=== PATIENT | male | born 1960 | race Hispanic/Latino ===

== ENCOUNTER 2017-09-07 16:42 | Emergency (ER) | payer OTHER ==
[2017-09-07 16:51] VITALS: BP 134/84; PULSE 84; RESP 16; TEMP 98.3; O2SAT 98
[2017-09-07 17:42] LABS: BASO % 0.5 % (0.0-2.0); EOS # 0.1 K/uL (0.0-0.7); EOS % 1.9 % (0.0-4.0); HEMATOCRIT 42.6 % (35.0-51.0); LYMPH # 1.9 K/uL (1.0-4.3); LYMPH % 32.5 % (20.0-40.0); MEAN CELL VOLUME 87.6 fl (80.0-94.0); MEAN CORPUSCULAR HEMOGLOBIN 29.7 pg (27.0-31.0); MEAN CORPUSCULAR HGB CONC 33.9 g/dL (33.0-37.0); MEAN PLATELET VOLUME 10.1 fl (7.2-11.7); MONO # 0.7 K/uL (0.0-0.8); MONO % 11.9 % (0.0-10.0); NEUT # 3.1 K/uL (1.8-7.0); NEUT % 53.2 % (50.0-75.0); NRBC % 0.2 % (0.0-0.0); RED CELL DISTRIBUTION WIDTH 12.6 % (11.5-14.5); WHITE BLOOD COUNT 5.8 K/uL (4.8-10.8)
--- NOTE | 2017-09-07 17:44 | ED PDOC ---
HPI: Abdomen Time Seen by Provider: 09/07/17 16:48 Chief Complaint (Nursing): Abdominal Pain Chief Complaint (Provider): Abdominal Pain History Per: Patient History/Exam Limitations: no limitations Onset/Duration Of Symptoms: Days (x3 days) Current Symptoms Are (Timing): Still Present Additional Complaint(s): 57 y/o male presents to the emergency department with a complaint of a constant left lower region abdominal pain x3 days. Denies previous surgeries, nausea, vomiting, diarrhea, or blood stools. PMD: Dr. Ludwin Hodgson MD Past Medical History Reviewed: Historical Data, Nursing Documentation, Vital Signs Vital Signs: Last Vital Signs Temp 98.3 F 09/07/17 16:49 Pulse 84 09/07/17 16:49 Resp 16 09/07/17 16:49 BP 134/84 09/07/17 16:49 Pulse Ox 98 09/07/17 19:20 - Medical History PMH: HTN - Surgical History Surgical History: No Surg Hx - Family History Family History: States: Unknown Family Hx - Social History Current smoker - smoking cessation education provided: No Alcohol: None Drugs: Denies - Home Medications Home Medications: Ambulatory Orders Medication Instructions Recorded Ciprofloxacin HCl [Cipro] 500 mg PO BID #14 tab 09/07/17 Metronidazole [Flagyl] 500 mg PO BID #14 tablet 09/07/17 - Allergies Allergies/Adverse Reactions: Allergies Allergy/AdvReac Type Severity Reaction Status Date / Time No Known Allergies Allergy Verified 09/07/17 16:48 Review of Systems ROS Statement: Except As Marked, All Systems Reviewed And Found Negative Gastrointestinal: Positive for: Abdominal Pain (Left lower region). Negative for: Nausea, Vomiting, Diarrhea, Hematochezia Physical Exam - Reviewed Nursing Documentation Reviewed: Yes Vital Signs Reviewed: Yes - Physical Exam Appears: Positive for: Non-toxic, No Acute Distress Head Exam: Positive for: ATRAUMATIC, NORMAL INSPECTION, NORMOCEPHALIC Skin: Positive for: Normal Color, Warm, Dry Eye Exam: Positive for: Normal appearance ENT: Positive for: Normal ENT Inspection. Negative for: Pharyngeal Erythema Cardiovascular/Chest: Positive for: Regular Rate, Rhythm. Negative for: Murmur Respiratory: Positive for: Normal Breath Sounds. Negative for: Accessory Muscle Use, Respiratory Distress Gastrointestinal/Abdominal: Positive for: Soft, Tenderness (Left lower quadrant pain). Negative for: Normal Exam Extremity: Positive for: Normal ROM. Negative for: Pedal Edema Neurologic/Psych: Positive for: Alert, Oriented (x3) - Laboratory Results Result Diagrams: 09/07/17 17:39 09/07/17 17:39 - ECG O2 Sat by Pulse Oximetry: 98 (RA) Pulse Ox Interpretation: Normal Medical Decision Making Medical Decision Making: Time: 1710 Impression: Acute diverticulitis differential include other conditions but are not listed Initial Plan: * CT Abdomen/Pelvis with IV Contrast * CMP * CBC * Lipase * Reevaluation Time: 1915 --Abd/pelvis CT FINDINGS: Lower thorax: There is minimal bibasilar atelectatic change or scarring. ABDOMEN: Liver: There is mild hepatomegaly. Gallbladder and bile ducts: Unremarkable. No calcified stones. No ductal dilation. Pancreas: Unremarkable. No mass. No ductal dilation. Spleen: There is borderline splenomegaly. Adrenals: Unremarkable. No mass. Kidneys and ureters: There is a nonobstructive left nephrolithiasis. Stomach and bowel: There is colonic diverticulosis with wall thickening and pericolonic fat stranding in the proximal sigmoid colon, consistent with mild acute diverticulitis without visible abscess or signs of gross perforation. No obstruction. Appendix: The appendix is unremarkable and seen best on axial image 61 of series 2. PELVIS: Bladder: Unremarkable. No massReproductive: Unremarkable as visualized. ABDOMEN and PELVIS: Intraperitoneal space: Unremarkable. No free air. No significant fluid collection. Bones/joints: No acute fracture. No dislocation. 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 Vasculature: There are atherosclerotic aortic and iliac and femoral artery calcifications. No abdominal aortic aneurysm. Lymph nodes: Unremarkable. No enlarged lymph nodes. IMPRESSION: 1. There is a nonobstructive left nephrolithiasis. 2. There is colonic diverticulosis with wall thickening and pericolonic fat stranding in the proximal sigmoid colon, consistent with mild acute diverticulitis without visible abscess or signs of gross perforation Time:1918 Upon provider reevaluation patient is feeling better, is medically stable, and requires no further treatment in the ED at this time. Patient will be discharged home with Rx for Cipro 500 mg and Flagyl 500 mg. Counseling was provided and all questions were answered regarding diagnosis and need for follow up with Dr. Ludiwn Hodgson MD. There is agreement to discharge plan. Return if symptoms persist or worsen. Clinical Impression: Acute Diverticulitis Scribe Attestation: Documented by Marcia Corey, acting as a scribe for Sudheer Kothari MD. Provider Scribe Attestation: All medical record entries made by the Scribe were at my direction and personally dictated by me. I have reviewed the chart and agree that the record accurately reflects my personal performance of the history, physical exam, medical decision making, and the department course for this patient. I have also personally directed, reviewed, and agree with the discharge instructions and disposition. Disposition - Clinical Impression Clinical Impression: Acute diverticulitis - Patient ED Disposition Is Patient to be Admitted: No Doctor Will See Patient In The: Office Counseled Patient/Family Regarding: Studies Performed, Diagnosis, Need For Followup - Disposition Referrals: Ludwin Hodgson MD [Medical Doctor] - Disposition: Routine/Home Disposition Time: 19:19 Condition: GOOD Additional Instructions: Take your medications as instructed. Follow up with you PCP in 2-3 days. Prescriptions: Ciprofloxacin HCl [Cipro] 500 mg PO BID #14 tab Metronidazole [Flagyl] 500 mg PO BID #14 tablet Instructions: Diverticulitis (DC)
[2017-09-07 18:08] LABS: ALB/GLOB RATIO 1.5 (1.0-2.1); ALKALINE PHOSPHATASE 47 U/L (38-126); ALT/SGPT 46 U/L (21-72); AST/SGOT 33 U/L (17-59); BILIRUBIN,TOTAL 0.6 mg/dl (0.2-1.3); BLOOD UREA NITROGEN 19 mg/dl (9-20); CARBON DIOXIDE 25 mmol/L (22-30); CHLORIDE 103 mmol/L (98-107); GFR AFRICAN-AMERICAN > 60; GLUCOSE,RANDOM 95 mg/dL (75-110); LIPASE 89 U/L (23-300); POTASSIUM 3.8 MMOL/L (3.6-5.0); SODIUM 141 mmol/l (132-148); TOTAL PROTEIN 7.3 G/DL (6.3-8.2)
[2017-09-07] MEDS ORDERED: Sodium Chloride 0.9% 50 ML IV ONE (18:20)
[2017-09-07] MEDS ORDERED: Iohexol 300 100 ML IJ ONE (18:20)
--- NOTE | 2017-09-08 09:12 | CT ---
PROCEDURE: CT Abdomen and Pelvis with contrast HISTORY: LLQ pain COMPARISON: None. TECHNIQUE: Contrast dose: 95 milliliters omni 300 Radiation dose: Total exam DLP = 1137 mGy-cm. This CT exam was performed using one or more of the following dose reduction techniques: Automated exposure control, adjustment of the mA and/or kV according to patient size, and/or use of iterative reconstruction technique. FINDINGS: LOWER THORAX: Minimal atelectasis. No infiltrate or effusion. Visualized esophagus is unremarkable. Visualized stomach is within normal limits. LIVER: Liver is diffusely fatty infiltrated and mildly enlarged. No focal liver mass or intrahepatic ductal dilatation is seen. Some small areas of focal fatty sparing are appreciated. GALLBLADDER AND BILE DUCTS: Unremarkable. PANCREAS: Unremarkable. No gross lesion or ductal dilatation. SPLEEN: Unremarkable. ADRENALS: Unremarkable. No mass. KIDNEYS AND URETERS: A few small left renal calculi without hydronephrosis or caliceal dilatation is seen. Kidneys are normal in size. No hydronephrosis is noted. No solid renal masses are identified. VASCULATURE: Minor atherosclerotic changes. BOWEL: There is mild pericolonic inflammatory change in the proximal sigmoid colon consistent with mild diverticulitis. No focal diverticular abscess or perforation is appreciated. No free air is identified. Remainder of the bowel is unremarkable. Small bowel is unremarkable. APPENDIX: Normal appendix. PERITONEUM: Unremarkable. No free fluid. No free air. LYMPH NODES: Unremarkable. No enlarged lymph nodes. BLADDER: Unremarkable. REPRODUCTIVE: Unremarkable. BONES: Mild disc bulging with a tiny central protrusion is seen at L5-S1. No compression fracture or malalignment is seen. No lytic process is seen in the bones. Mild degenerative changes are seen in the hips. There is evidence of a fat containing mass within the posterior lateral right abdominal musculature, more than likely the external oblique musculature. This measures 5.3 centimeters x 3.9 centimeters. No nodule or wall thickening is appreciated. OTHER FINDINGS: None. IMPRESSION: Mild sigmoid colon diverticulitis. Small nonobstructing left renal calculi. Right lateral abdominal musculature lipoma. Diffuse fatty infiltration of the liver. This agrees with preliminary report provided by the on-call radiologist.
== END 2017-09-07 19:40 | disposition home or self-care (01) ==
LOC: H.ER 16:42
DX: K57.32 Diverticulitis of large intestine without perforation or abscess without bleeding (principal); I10 Essential (primary) hypertension; N20.0 Calculus of kidney; K76.0 Fatty (change of) liver, not elsewhere classified
CPT/HCPCS: 74177; 80053; 83690; 85025; 99284; Q9967